=== PATIENT | female | born 1970 | race Caucasian/White ===

== ENCOUNTER 2018-10-26 16:19 | Outpatient (CLI) | payer OTHER, SELFPAY ==
[2018-10-26 16:36] LABS: HCT 40.5 % (36.0-46.0); HGB 13.2 g/dL (12.0-15.5); Mean Corp. HGB Concentration 32.6 g/dL (32.0-36.0); Mean Corpuscular Hemoglobin 28.9 pg (27.0-33.0); Mean Corpuscular Volume 88.8 fL (80-95); Mean Platelet Volume 10.5 fL (8.0-11.0); Platelet Count 248 x1000/uL (130-400); RBC 4.56 m/cumm (4.00-5.20); RBC Distribution Width 13.5 % (11.7-14.6); White Blood Cell Count 8.62 k/cumm (4.4-10.8)
[2018-10-26 20:45] LABS: ALT 23 U/L (12-78); AST 16 U/L (15-37); Albumin 3.9 g/dL (3.4-5.0); Alkaline Phosphatase 72 U/L (46-116); Anion Gap 10.8 mmol/L (3-11); BUN 12 mg/dL (7-18); Bilirubin, Total 0.2 mg/dL (0.2-1.0); CO2 26.2 mmol/L (21.0-32.0); CREATININE 0.81 mg/dL (0.55-1.02); Calcium 8.9 mg/dL (8.5-10.1); Chloride 107 mmol/L (98-107); Glucose 73 mg/dL (70-100); Potassium 3.9 mmol/L (3.5-5.1); Sodium 144 mmol/L (136-145); TSH (W/Ref FT4) 1.79 uIU/mL (0.358-3.74); Total Protein 6.9 g/dL (6.4-8.2)
== END 2018-10-26 16:39 ==
PROVIDERS: PCP Nurse Practitioner; Visit Provider Nurse Practitioner
DX: E28.2 Polycystic ovarian syndrome (principal); R68.82 Decreased libido; R53.83 Other fatigue; N94.10 Unspecified dyspareunia
CPT/HCPCS: 36415; 80053; 85027; 84443

== ENCOUNTER 2018-11-01 15:03 | Outpatient (CLI) | payer OTHER, SELFPAY ==
[2018-11-05 12:41] LABS: Testosterone, Free 0.18 ng/dL (0.06-0.95); Testosterone, Total 15 ng/dL (8-60)
== END 2018-11-01 15:23 ==
PROVIDERS: PCP Nurse Practitioner; Visit Provider Obstetrics & Gynecology
DX: R68.82 Decreased libido (principal)
CPT/HCPCS: 36415; 84402; 84403

== ENCOUNTER 2018-11-10 18:28 | Outpatient (REF) | payer OTHER, SELFPAY | END 2018-11-10 18:48 | LOC: LBN 18:28 | PROVIDERS: PCP Nurse Practitioner; Visit Provider Nurse Practitioner | DX: R30.0 Dysuria (principal) | CPT/HCPCS: 87077; 87086; 87186 ==

== ENCOUNTER 2019-01-11 15:56 | Outpatient (REF) | payer OTHER, SELFPAY ==
--- NOTE | 2019-01-11 15:25 | PAPFT_PTH ---
PATIENT: RODNEY PETER LOC: [facility] U#:[id number] AGE/SX: 48/F ROOM: RE01/11/[address]: Megan Chavez MD : 1970 BED: DIS: 01/11/2019 SPEC #: [id number] RECD: 01/11/19 17:44 STATUS: MAREN REKit #: [id number] VIK: 01/11/19 15:[address]: Megan Chavez DEPT: [facility] Cytology RECD BY: Lia Dempsey ENTERED: 01/11/19 17:45 SP TYPE: PAPFT KATLYN DR: Cindi Hussein APRN Tissues: 1 - CX/ENDOCX FOR PAP SMEARS Procedures: PAP THIN PREP/[facility] Screening HPV DNA PROBE Comments: [id number]
== END 2019-01-11 16:16 ==
LOC: LBN 15:56
PROVIDERS: PCP Nurse Practitioner; Visit Provider Obstetrics & Gynecology
DX: Z12.4 Encounter for screening for malignant neoplasm of cervix (principal); Z11.51 Encounter for screening for human papillomavirus (HPV)
CPT/HCPCS: 88142; 87624